=== PATIENT | female | born 1985 | race Two or more races ===

== ENCOUNTER → 2019-08-12 | Outpatient (CLI) | payer SELFPAY ==
[2016-05-16 13:21] VITALS: BP 107/67
[~2019-08-12] MED LIST: AMIT25TA PO; TRAM50TA PO
--- NOTE | 2019-08-12 16:54 | RAD ---
Examination: US GUID NDL PLACE/ASPI/BX, DIGITAL DIAGNOSTIC RT History: Palpable abnormality involving the right breast in the subareolar region Comparison/Correlation: 03/11/2017 bilateral breast ultrasound, 07/14/2019 bilateral breast ultrasound Findings: Risks, benefits, and alternatives regarding ultrasound-guided biopsies of the 2 lesions involving the right breast at the 9:00 region 3 cm from the nipple and in the 10:00 subareolar region were discussed with the patient and informed consent was obtained. Cleansing with ChloraPrep at the anticipated site of needle placement was performed. Sterile draping, sterile gel, and sterile probe cover is were utilized. Approximately 8 cc of 1 percent lidocaine was administered subcutaneously and along the expected course of each of the needle tracks. Scalpel incision was made inferior to the 9:00 lesion. Introducer was placed. Utilizing a 12-gauge biopsy needle, a total of 4 passes were made. Clip marker was then placed via the introducer. A second scalpel incision was made inferior to the subareolar 10:00 lesion. Introducer was placed. Utilizing a 14-gauge core biopsy needle, a total of 5 passes were made. Clip marker was then placed via the introducer into the mass. CC and MLO views of the right breast were obtained. Right breast is heterogeneously dense and this matter detection of small masses. Biopsy clip marker is present in the anterior retroareolar aspect of the right upper outer breast. Additional marker is present on the right upper outer breast more posteriorly. No hematoma collections identified. Impression: Successful biopsy of both of the right breast masses. Specimens were sent in 2 separate containers to the lab. Electronically signed by: Ruslan Cabello MD (08/12/2019 4:51 PM) [id number]
--- NOTE | 2019-08-13 14:06 | PATHOLOGY ---
[facility] Accession Number: [id number] . 01 Material submitted: . PART A: breast - RIGHT BREAST 9:00, 3CMFN. Modifiers: right, 9:00 PART B: breast - RIGHT BREAST 10:00, SUBAREOLAR. Modifiers: right, 10:00 . 01 Clinical history: . Right breast mass . 02 Diagnosis: A. Breast tissue, right breast mass 9:00, needle biopsies: - Fibroadenoma. . B. Breast tissue, right breast subareolar mass 10:00, needle biopsies: - Fibroadenoma. . ([facility]:mm; 08/13/2019) [facility] 08/13/2019 1017 Local . 02 Comment: There is no atypia or evidence of malignancy. . ([facility]:mm; 08/13/2019) . 02 Electronically signed: . Sae Swartz MD, Pathologist NPI- [id number] . 01 Gross description: . A. The specimen is received in formalin, labeled "Monse Sanchez, right breast 9:00 3 cm". Received are multiple needle cores of fibrofatty tissue measuring 1.6 x 1.0 x 0.2 cm in aggregate dimensions. The specimen is submitted entirely in cassettes A1 through A3. The cold ischemic time is 5 minutes. The total formalin fixation time is 10 hours and 55 minutes. . B. The specimen is received in formalin, labeled "Monse Abarcamonge, right breast 10:00 SA". Received are multiple needle cores of fibrofatty tissue measuring 1.5 x 1.0 x 0.2 cm in aggregate dimensions. The specimen is submitted entirely in cassettes B1 through B3. The cold ischemic time is 5 minutes. The total formalin fixation time is 10 hours and 45 minutes. ([facility]; 08/12/2019) QAC/QAC 08/12/2019 1644 Local . 02 Pathologist provided ICD-10: D24.1 . 02 CPT . 562836, [id number] Specimen Comment: A courtesy copy of this report has been sent to [phone], [phone] Specimen Comment: [id number] Specimen Comment: Report sent to / DR MENDENHALL Performed at: 01 [facility] [address] [facility] [address], [place] [id number] MD Nino Garcia MD Phone: [phone] [facility]formed at: [facility] [address] [place], [place] [id number] MD Sae Swartz MD Phone: [phone]
== END | disposition home or self-care (01) ==
LOC: US 11:38
PROVIDERS: ATTEND Physician Assistant Medical
DX: N63.10 Unspecified lump in the right breast, unspecified quadrant (principal); D24.1 Benign neoplasm of right breast
CPT/HCPCS: 19083; 19084; 77065; 88305; C1713; 19081; 76942